=== PATIENT | male | born 1965 | race Caucasian/White ===

== ENCOUNTER 2021-11-15 15:37 | Emergency (ER) | payer MEDICAID ==
[~2021-11-15] VITALS: Ht 172.7 cm; Wt 90.7 kg
[2021-11-15 17:29] LABS: HEMATOCRIT 43.5 % (36.7-47.1); PLATELET COUNT (AUTO) 354 K/uL (152-348)
[2021-11-15] MEDS ORDERED: ONDANSETRON 4 MG/2 ML VIAL ONE (17:35)
[2021-11-15] MEDS ORDERED: MORPHINE SULFATE 4 MG/1 ML DISP.SYRIN ONE (17:35)
[2021-11-15] MEDS: ONDANSETRON 4 MG/2 ML VIAL IV ONE (17:36)
[2021-11-15] MEDS ORDERED: MORPHINE SULFATE 2 MG/1 ML DISP.SYRIN ONE (17:36)
[2021-11-15] MEDS: IV NORMAL SALINE 1000 ML BAG IV ONE (17:36)
[2021-11-15] MEDS: MORPHINE SULFATE 2 MG/1 ML DISP.SYRIN IV ONE (17:36)
[2021-11-15 17:38] LABS: *BILIRUBIN,URIN NEGATIVE (NEGATIVE); *CLARITY,URINE CLEAR (CLEAR); *COLOR,URINE YELLOW (YELLOW); *KETONES,URINE NEGATIVE (NEGATIVE); *UROBILINOGEN,URINE 0.2 E.U./dl (NORMAL); LEUKOCYTE ESTERASE ,URINE NEGATIVE (NEGATIVE); NITRITE, URINE NEGATIVE (NEGATIVE); UGLUCOSE 2+ (NEGATIVE)
[2021-11-15] MEDS ORDERED: IOHEXOL 300MG/ML 100 ML INFUS..BTL ONE (17:43)
[2021-11-15] MEDS ORDERED: IV NORMAL SALINE 250 ML IV ONE (17:43)
[2021-11-15] MEDS ORDERED: SWABABLE VALVE TRANSFER SET EA MC ONE (17:43)
[2021-11-15 17:46] LABS: *BLOOD, URINE TRACE (NEGATIVE)
[2021-11-15] MEDS ORDERED: ATOR40TA PO (18:14)
[2021-11-15] MEDS ORDERED: DOCU100C36 PO (18:14)
[2021-11-15] MEDS ORDERED: ASPI81TA31 PO (18:14)
[2021-11-15] MEDS ORDERED: LISI20TA30 PO (18:14)
[2021-11-15] MEDS ORDERED: EMPA25TA PO (18:14)
[2021-11-15] MEDS ORDERED: ACET-73 PO (18:14)
[2021-11-15] MEDS ORDERED: GABA600T12 PO (18:14)
[2021-11-15] MEDS ORDERED: METF-442 PO (18:14)
[2021-11-15] MEDS ORDERED: AMLO-212 PO (18:14)
[2021-11-15 18:41] LABS: BACTERIA,URINE NONE SEEN /HPF (NONE SEEN); RBC,URINE 0-3 /HPF (0-3); SQUAMOUS EPITHELIAL CELL,UR NONE SEEN /HPF (NONE SEEN); WBC,URINE NONE SEEN /HPF (0-3)
--- NOTE | 2021-11-15 18:50 | NUR ---
Pt was just informed of diagnostic results showing Pancratic CA that has metastisized. Pts family is finding it exceptionaly difficulty. Pt seems to be in good health otherwise with good vs and PE wnl.
[2021-11-15 19:06] LABS: CREATININE 0.8 mg/dL (0.6-1.3); POTASSIUM 4.3 mmol/L (3.5-5.1)
[2021-11-15 19:17] LABS: BILIRUBIN,TOTAL 0.2 mg/dL (0.2-1.0); TOTAL PROTEIN, SERUM 8.7 g/dL (6.4-8.2)
--- NOTE | 2021-11-15 19:20 | NUR ---
report recieved from NEMESIO Brandt. Was told the pt was just informed of new onset pancriatic CA. Pt is otherwise healthy with no major medical issues. Pt has good appearance and color. Pt standing and pacing VSS, PE WNL. Pt in no apparent distress
[2021-11-15] MEDS: MAGNESIUM CITRATE 296 ML BOTTLE PO ONE (19:41)
--- NOTE | 2021-11-15 19:45 | NUR ---
One bottle or mag citrate given to pt. Pt told to drink half now and half when he goes home.
[2021-11-15] MEDS ORDERED: MAGNESIUM CITRATE 296 ML BOTTLE ONE (19:51)
[2021-11-15] MEDS ORDERED: POLY119P2 PO (19:54)
[2021-11-15] MEDS ORDERED: IBUP-1957 PO (19:54)
--- NOTE | 2021-11-15 20:04 | NUR ---
Pt given dc instructions and med info and dced home by ambulation, accompanied by daughter. Pts VSS PE WNL, denies any pain, sob, dizzienss, n/v. No s/sx of distress present. Pt confirmed understanding of aftercare instructions.
[2021-11-15 20:11] VITALS: BP 130/78
--- NOTE | 2021-11-17 14:45 | NUR ---
Clinical Social Work Note SW spoke with patient's daughter Ale Richardson ([phone]) who requested information about durable power of commonwealth attorney. SW provided information about the process of obtaining a DPOA.
== END 2021-11-15 20:00 | disposition home or self-care (01) ==
LOC: ER 15:42
DX: R10.30 Lower abdominal pain, unspecified (principal); K59.00 Constipation, unspecified; Z20.822 Contact with and (suspected) exposure to COVID-19; R91.1 Solitary pulmonary nodule; K76.9 Liver disease, unspecified; K86.9 Disease of pancreas, unspecified; E78.5 Hyperlipidemia, unspecified; E11.9 Type 2 diabetes mellitus without complications; G89.29 Other chronic pain; Z79.84 Long term (current) use of oral hypoglycemic drugs; Z79.82 Long term (current) use of aspirin; Z79.899 Other long term (current) drug therapy; R03.0 Elevated blood-pressure reading, without diagnosis of hypertension; Z88.0 Allergy status to penicillin
CPT/HCPCS: 36415; 71045; 83690; 85025; 93005; A4663; J2270; J2405; J7030; J7050; Q9967